=== PATIENT | male | born 1995 | race Caucasian/White ===

== ENCOUNTER 2017-05-19 18:54 | Emergency (ER) | payer SELFPAY ==
[~2017-05-19] VITALS: Ht 172.7 cm; Wt 71.7 kg
[2017-05-19 20:50] VITALS: BP 149/87
== END 2017-05-19 21:45 | disposition home or self-care (01) ==
LOC: ER 19:11
DX: S46.811A Strain of other muscles, fascia and tendons at shoulder and upper arm level, right arm, initial encounter (principal); F12.10 Cannabis abuse, uncomplicated; F17.210 Nicotine dependence, cigarettes, uncomplicated; V43.52XA Car driver injured in collision with other type car in traffic accident, initial encounter; Y93.89 Activity, other specified; Y92.89 Other specified places as the place of occurrence of the external cause; Y99.8 Other external cause status